=== PATIENT | female | born 1945 | race Caucasian/White ===

== ENCOUNTER 2020-08-08 13:05 | Outpatient (REF) | payer BC, SELFPAY ==
--- NOTE | 2020-08-08 13:36 | XR_ITS ---
EXAMINATION: XR HIP, LEFT CLINICAL INFORMATION: M25.552 - Pain in left hip COMPARISON: Pelvis and left hip 01/12/2020, 10/21/2017 TECHNIQUE: AP view pelvis is performed along with AP and frog-lateral projections left hip. FINDINGS: There are 3 nails through the left hip. Hardware is intact. There are interval increased osteoarthritic changes with marked left hip joint narrowing and increased subchondral sclerosis and enlarging lateral acetabular osteophyte. There are interval cystic changes superior femoral head adjacent to the superior articular flattening measuring around 1.5 cm in diameter. This may related to progressing subchondral geodes or avascular necrosis. There are degenerative changes again seen lumbosacral junction and osteoarthritis right hip. XR/XR hip LT w PEL1V IMPRESSION: 1. Progressive osteoarthritic changes left hip with interval 1.5 cm cystic change superior femoral head adjacent to prior area of articular flattening. This may be related to geodes or avascular necrosis. 2. Degenerative changes lumbosacral junction and right hip.
== END 2020-08-08 13:06 | disposition home or self-care (01) ==
LOC: HO.HOSX 13:05
PROVIDERS: Visit Provider Orthopaedic Surgery
DX: M16.52 Unilateral post-traumatic osteoarthritis, left hip (principal)
CPT/HCPCS: 73502

== ENCOUNTER → 2020-09-12 12:53 | Outpatient (BNVA) | payer BC, SELFPAY | PROVIDERS: PCP Nurse Practitioner Family; Visit Provider Orthopaedic Surgery | DX: Z01.812 Encounter for preprocedural laboratory examination (principal); Z01.810 Encounter for preprocedural cardiovascular examination ==

== ENCOUNTER → 2020-10-04 13:07 | Outpatient (BNVA) | payer MEDICARE, SELFPAY | PROVIDERS: Visit Provider Physician Assistant | DX: M16.52 Unilateral post-traumatic osteoarthritis, left hip (principal) | CPT/HCPCS: 99212 ==

== ENCOUNTER 2020-10-09 06:09 | Inpatient (IN) | payer MEDICARE, SELFPAY ==
[2020-10-02 11:43] VITALS: BP 148/80; PULSE 84; RESP 16; O2SAT 98; BMI 25.7
--- NOTE | 2020-10-02 11:57 | P.CONAN_ITS ---
Documented by User: Valery Underwood 10/06/20 07:05 HPI - Anesthesia Eval Consult details Narrative: 75yo F for Left Hip Total Replacement Eliquis for LLE DVT - chronic, nonocclusive per vascular clearance note. OK to interrupt eliquis for surgery. PCP cleared PMFSH Active Problems Active Problems: All Active Problems (Updated 09/29/20 @ 12:41 by Lucy Pennington) Post-traumatic osteoarthritis of left hip (Acute) Past Medical History Medical History Tita's thyroiditis High cholesterol History of DVT of lower extremity Hypertension Family History Family history of problems with anesthesia: No Surgical History Surgical History History of hip surgery Hx of section Hx of tonsillectomy History of Problems with Anesthesia: No Social History Social History Household Members Other:: Lives with daughter and grandaughter Are you a primary child daycare worker to a significant other at home: No Do you presently have visiting nurse or other home services: No Smoking Status: Never smoker Use of substances other than those prescribed or required for medical reasons: No Have you been hit, kicked, punched, or otherwise hurt by someone within the past year? If so, by whom?: No Advance Directives: No Advance Directives Information Provided: No Advance Directives on File: No Recently lost weight without trying: No Current occupational status: retired Current occupation: Right Handed Narrative Narrative: No recent illness. Covid vaccination complete. Activity limited to pain, no CP/SOB within limits. Meds Allergies Allergy/AdvReac Type Severity Reaction Status Date / Time No Known Allergies Allergy Verified 10/04/20 13:20 [No Known Allergies*] Home Medications Medication Instructions Recorded Confirmed Last Taken Type apixaban 5 mg tablet 5 mg PO BID 08/08/20 09/29/20 10/06/20 History atorvastatin 10 mg tablet 10 mg PO DAILY 08/08/20 09/29/20 Unknown History levothyroxine 50 mcg capsule 50 mcg PO .QOD cap 08/08/20 09/29/20 Unknown History levothyroxine 75 mcg capsule 75 mcg PO .QOD cap 08/08/20 09/29/20 10/09/20 History lisinopril 10 mg tablet 10 mg PO DAILY 08/08/20 09/29/20 Unknown History cholecalciferol (vitamin D3) 25 mcg PO DAILY 10/02/20 10/02/20 Unknown History [Vitamin D3] Exam Exam Date and Time: October 02, 2020 1157 Pertinent Lab Results Pertinent Lab Results: 10/02/20 MRSA Nasal Screen Routine 10/02/20 12:50 Type and Screen Routine Basic Metabolic Panel Routine Complete Blood Count no Diff Routine Hemoglobin A1c Routine Laboratory Last Values WBC 5.2 X10*3/uL (4.8-10.8) 10/02/20 12:50 RBC 4.62 X10*6/uL (4.20-5.50) 10/02/20 12:50 Hgb 13.5 g/dl (12.0-16.0) 10/02/20 12:50 Hct 41.9 % (37-47) 10/02/20 12:50 MCV 90.7 fL (80-98) 10/02/20 12:50 MCH 29.2 pg (27.0-33.0) 10/02/20 12:50 MCHC 32.2 g/dl (31.0-35.0) 10/02/20 12:50 RDW 12.8 % (11.0-16.0) 10/02/20 12:50 Plt Count 291 X10*3/uL (160-400) 10/02/20 12:50 MPV 9.0 fL (9.4-12.3) L 10/02/20 12:50 Absolute Nucleated RBC 0.000 X10*3/uL (0.0-0.012) 10/02/20 12:50 Nucleated RBC % (auto) 0.0 /100WBC (0.0-0.2) 10/02/20 12:50 Sodium 142 mmol/L (135-145) 10/02/20 12:50 Potassium 4.2 mmol/L (3.3-5.1) 10/02/20 12:50 Chloride 107 mmol/L (96-108) 10/02/20 12:50 Carbon Dioxide 29 mmol/L (22-29) 10/02/20 12:50 Anion Gap 10 (12-20) L 10/02/20 12:50 BUN 18 mg/dL (9-16) H 10/02/20 12:50 Creatinine 0.87 mg/dL (0.5-1.4) 10/02/20 12:50 Estim Creat Clear Calc 55.9 10/02/20 12:50 Estimated GFR > 60 10/02/20 12:50 Random Glucose 102 mg/dL (60-115) 10/02/20 12:50 Estimat Average Glucose 100 mg/dL 10/02/20 12:50 Hemoglobin A1c % 5.1 % 10/02/20 12:50 Calcium 8.9 mg/dL (8.4-10.2) 10/02/20 12:50 Nasal Screen MRSA (PCR) NEGATIVE (Negative) 10/02/20 Unknown Nasal S. aureus Screen NEGATIVE (Negative) 10/02/20 Unknown Nasal MRSA/S.aureus Interp SEE NOTE 10/02/20 Unknown Blood Type A Positive 10/02/20 12:50 Antibody Screen NEGATIVE 10/02/20 12:50 Narrative Narrative: EKG 08/2020 NSR per pcp clearance note Airway Mallampati Class: II TM Dist: >3cm Neck ROM: Full Loose/Missing/Broken Teeth: Yes (Capped #7&10) Heart: RRR Lungs: CTAB Assessment and Plan Assessment Anesthesia Assessment: Anesthesia Plan Discussed and PAT Visit Documented by User: Kd Kraft MD 10/09/20 08:02 [facility] Past Medical History Medical History Tita's thyroiditis High cholesterol History of DVT of lower extremity Hypertension Surgical History Surgical History History of hip surgery Hx of section Hx of tonsillectomy Social History Social History Household Members Other:: Lives with daughter and grandaughter Are you a primary child daycare worker to a significant other at home: No Do you presently have visiting nurse or other home services: No Smoking Status: Never smoker Use of substances other than those prescribed or required for medical reasons: No Have you been hit, kicked, punched, or otherwise hurt by someone within the past year? If so, by whom?: No Advance Directives: No Advance Directives Information Provided: No Advance Directives on File: No Recently lost weight without trying: No Current occupational status: retired Current occupation: Right Handed Meds Allergies Allergy/AdvReac Type Severity Reaction Status Date / Time No Known Allergies Allergy Verified 10/04/20 13:20 [No Known Allergies*] Home Medications Medication Instructions Recorded Confirmed Last Taken Type apixaban 5 mg tablet 5 mg PO BID 08/08/20 09/29/20 10/06/20 History atorvastatin 10 mg tablet 10 mg PO DAILY 08/08/20 09/29/20 Unknown History levothyroxine 50 mcg capsule 50 mcg PO .QOD cap 08/08/20 09/29/20 Unknown History levothyroxine 75 mcg capsule 75 mcg PO .QOD cap 08/08/20 09/29/20 10/09/20 History lisinopril 10 mg tablet 10 mg PO DAILY 08/08/20 09/29/20 Unknown History cholecalciferol (vitamin D3) 25 mcg PO DAILY 10/02/20 10/02/20 Unknown History [Vitamin D3] Assessment and Plan Assessment Anesthesia Assessment: Anesthesia Plan Discussed and Chart Reviewed (Apixaban last dose 72 hours ago) Final Anesthetic Review NPO: Yes ASA Class: II Final Preanesthetic Review: No Changes in Pt Med Stat, Meds/Allgs Chart Reviewed, Consent Obtained/Reviewed and Anes Risks/Benef Reviewed Patient Risk: Intermediate Procedure Risk: Intermediate Anesthetic Plan Anesthetic Plan: MAC:, Spinal and Regional Block Disposition: Standard PACU
[2020-10-02 13:19] LABS: Hematocrit 41.9 % (37-47); Hemoglobin 13.5 g/dl (12.0-16.0); Mean Corpuscular HGB Conc 32.2 g/dl (31.0-35.0); Mean Corpuscular Hemoglobin 29.2 pg (27.0-33.0); Mean Corpuscular Volume 90.7 fL (80-98); Platelet Count 291 X10*3/uL (160-400); Red Blood Count 4.62 X10*6/uL (4.20-5.50); Red Cell Distribution Width 12.8 % (11.0-16.0); White Blood Count 5.2 X10*3/uL (4.8-10.8)
[2020-10-02 13:47] LABS: Anion Gap 10 (12-20); Blood Urea Nitrogen 18 mg/dL (9-16); Calcium 8.9 mg/dL (8.4-10.2); Carbon Dioxide 29 mmol/L (22-29); Chloride 107 mmol/L (96-108); Creatinine Clr Calc Pharmacy 55.9; Estimated Glomerular Filt Rate > 60; Glucose Random 102 mg/dL (60-115); Potassium 4.2 mmol/L (3.3-5.1); Sodium 142 mmol/L (135-145)
[2020-10-02 13:50] LABS: MRSA Nasal PCR NEGATIVE (Negative); SA Nasal PCR NEGATIVE (Negative)
[2020-10-02 14:00] LABS: Estimated Average Glucose 100 mg/dL; Hemoglobin A1c % 5.1 %
[2020-10-09] VITALS (18 sets, daily range): BP systolic 100–142; BP diastolic 42–63; PULSE 60–95; RESP 9–20; TEMP 36.2–36.9; O2SAT 94–99
--- NOTE | ~2020-10-09 | XR_ITS ---
EXAMINATION: XR HIP, LEFT CLINICAL INFORMATION: Postop COMPARISON: Previous x-ray July 2020 TECHNIQUE: Two views of the left hip. FINDINGS: There is a new left hip replacement in satisfactory position. No fracture or dislocation is seen. There is arthritis of the right hip joint. There are postoperative changes to the soft tissues. XR/XR hip LT w PEL1V IMPRESSION: Satisfactory appearance of left hip replacement.
[2020-10-09 06:54] LABS: COVID-19 Test Negative (Negative)
[2020-10-09] MEDS: Gabapentin 600 MG TABLET PO (06:59)
[2020-10-09] MEDS: Lactated Ringers 1,000 ML 100 ML IVCONT ×2 (07:14→13:57)
--- NOTE | 2020-10-09 07:23 | MHC.SHP ---
Pre-Procedural Eval Section A The patient is an INPATIENT: No Changes since office visit: No Cold of Flu in the past 2 weeks, No New Medical Problems, No Changes in Medication and No Patient answered all questions The History & Physical has been completed within 30 days and I have reviewed it.: Yes Section B Chief Complaint: left total hip arthroplasty with hardware removal Allergies: Allergies Allergy/AdvReac Type Severity Reaction Status Date / Time No Known Allergies Allergy Verified 10/04/20 13:20 [No Known Allergies*] Plan I have reviewed the history and physical and performed a pertinent physical examination on my patient. No changes have occurred unless specified.
--- NOTE | 2020-10-09 10:16 | W.PM.OPN ---
Operative Note Operative Note Date of Service: 10/09/20 Narrative: OPERATIVE PROCEDURE SURGEON: Dr De La Cruz(Janene) Instrum FURNITURE TECHNICIAN: Jacqui Cox PAC PREOP DIAGNOSIS: Osteoarthritis left hip with percutaneous screws POSTOP DIAGNOSIS: Same OPERATIVE PROCEDURE: Removal of screws; Left Total hip arthroplasty-Gerald Accolade to size for by 132 degree femur, 32 mm standard Biolox head, 48 mm trident acetabulum, 32 mm x 0 degree acetabular liner CLINICAL NOTE: This very pleasant individual comes in today in regards to their left hip. That evidence of osteoarthritis. This failed operative management. Therefore after explaining the risks benefits and alternatives and answering all the questions it was mutually agreed upon to carry following procedure. OPERATIVE DETAILS Under a spinal anesthetic the patient was placed in the right decubitus position. The leg was then prepped and draped in standard fashion. Surgical time-out was then performed. Patient is identified. Procedure confirmed. Site confirmed. Medical and allergy history was reviewed. Preoperative antibiotics were given. Standard DVT prophylaxis in place. Trans E make acid was given as well. All was discussed and agreed upon. Standard anterolateral approach to the hip was carried out. Hemostasis was achieved along the way at all points with electrocautery. This brought us down to the level of the fascia tye. This was divided along the length of the incision. At this point the vastus lateralis was explored and the 3 screws are identified and were all removed without incident. We then turned our attention back to the hip itself. The abductor musculature was identified. The anterior 2/3 were divided through tendon directly onto the greater trochanter. Muscle was then elevated off the capsule down to the level of the acetabulum. At this point a capsulectomy was then performed. The hip was then dislocated. Obvious evidence of osteoarthritis. The head and neck was then resected according to preoperative templating. We then turned our attention to the acetabulum. The remainder of the capsule and acetabular look labrum was removed. The soft tissue within the fovea was excised as well. . The be curette was used to remove any rib remaining cartilage. Starting with the 47 mm Reamer the acetabulum was sequentially reamed up to a size 48 mm. The trial acetabulum was placed at this point. It demonstrated appropriate fit fill and alignment. Therefore the 48 mm trident acetabulum was selected and brought up the table. The acetabulum was then thoroughly irrigated. The permanent component was brought up on the table. It was then Press-Fit into place with excellent fit and alignment. A trial liner for the 32 mm head was selected. It was placed and we turned our attention to the femur. Box osteotome was used to lateralize the canal. T Reamer was then used to sound the canal. The canal was then sequentially broached from a 0 to a size 4. It had excellent medial lateral fit and rotational stability. A trial reduction was then performed using the 132 degree collar and the 32 mm standard head. The hip was reduced. It was placed through range of motion. It demonstrated excellent leg lengths. Full range of motion. Stable in all positions. And therefore the Accolade 2 size4, femoral component along with the 32 mm standard acetabular liner, and the 32 mm standard head were selected and brought up to the table. The hip was redislocated. The trial components were then all removed. The acetabular was thoroughly irrigated. The permanent liner was tapped into place. Turning our attention back to the femur, it was thoroughly irrigated. The permanent component was brought up to the table. It was then tapped into place with the same fit and fill as the broach had been. The head was brought up. The Garcia taper was cleaned and dried. The head tapped into place. Final reduction was then performed which again demonstrated excellent leg length is. Full range of motion. And excellent stability. Therefore proceeded closure. The wound was thoroughly irrigated. The abductor musculature was repaired with 2. Dexon. The fascia tye was closed with 2. Quill suture. The skin was approximated using interrupted 2-0 Dexon. The skin was then closed with kati. Sterile dressing was then applied. The patient then had the anesthesia reversed. They were transferred supine to the room bed then taken to recovery room in good condition. Intraoperatively a 2nd unit trans of mac acid was given. There was approximately 100 cc of blood loss. No intraop transfusions or complications.
--- NOTE | 2020-10-09 12:59 | PC.NURSE ---
Went to check in on patient at 1248 to discuss pain medication and found her unresponsive. No response to sternal rub. Pt was without breath, pale in color w/ bluish lips, no pulse found, called mia blue rapid response. MD and team responded within seconds. compressions initiated. with 3rd compression pt opened eyes and started to move. Code team found BP to hypotensive, in sinus rhythm. Pt able to respond at this point and state who she was and why she was here. Pt reported that she was sitting up to get ready to eat and started to feel lightheaded. Pt remains pale and hypotensive. Will cont to monitor VS Q15 for the next hr. Bolus of LR running per code team. Prior to incident pt had been assessed at 1230 by this RN and at that time had only reported increasing pain as block to L leg was wearing off.
[2020-10-09 13:01] LABS: Glucose, Whole Blood 78 mg/dL (60-115)
--- NOTE | 2020-10-09 13:12 | PM.IMCN ---
History of Present Illness Data of Consult Service Date: 10/09/20 Requesting physician: Jono Jorge Primary Care Provider: Tan Talbot NP HPI Reason for consult: Syncope 75F presented for elective left total hip arthroplasty with hardware removal. Surgery was uneventful. Once patient came back to the floor, she began to eat and then felt lightheaded. Patient was then witnessed to have loss of consciousness. Rapid response was called. Patient was noted to be significantly hypertensive with systolic blood pressure in 70s. She was placed in Trendelenburg and given 1 L of lactated Ringer. Patient then will common was oriented to person place time. Her blood pressure improved to 111 systolic. She denied any chest pain, shortness of breath. Review of Systems Review of Systems: Constitutional: Denies fever, denies Chills Eyes: denies blurry vision ENT: denies sore throat CVS: denies chest pain Respiratory: Denies dyspnea GI: no abdominal pain : denies dysuria MSK: denies neck pain Skin: denies rash Neuro: denies specific motor weakness Psych: denies suicidal ideation Endocrine: denies heat/cold intoleratnce Hematologic: denies easy bleeding Allergy: denies hives [facility] Medical History Tita's thyroiditis High cholesterol History of DVT of lower extremity Hypertension Hypothyroid Family history: reviewed and not pertinent Surgical History History of hip surgery Hx of section Hx of tonsillectomy Social History Household Members Other:: Lives with daughter and grandaughter Are you a primary landcare officer to a significant other at home: No Do you presently have visiting nurse or other home services: No Smoking Status: Never smoker Use of substances other than those prescribed or required for medical reasons: No Have you been hit, kicked, punched, or otherwise hurt by someone within the past year? If so, by whom?: No Advance Directives: No Advance Directives Information Provided: No Advance Directives on File: No Recently lost weight without trying: No Current occupational status: retired Current occupation: Right Handed Meds Allergies Allergy/AdvReac Type Severity Reaction Status Date / Time No Known Allergies Allergy Verified 10/04/20 13:20 [No Known Allergies*] Active Medications: Current Medications Generic Name Dose Route Start Last Admin Trade Name Freq PRN Reason Stop Dose Admin Acetaminophen 650 mg 10/09/20 13:00 Acetaminophen 325 Mg Tablet PO Q6H [facility] Lactated Ringer's 1,000 mls @ 100 mls/hr 10/09/20 06:15 10/09/20 07:14 Lr IVCONT 100 mls/hr .Q10H [facility] Administration Cefazolin Sodium/Dextrose 2 gm in 50 mls @ 100 mls/hr 10/09/20 13:50 Ancef IV 10/09/20 14:19 POSTOP ONE Lactated Ringer's 500 mls @ 999 mls/hr 10/09/20 13:15 Lr IV 10/09/20 13:45 .Q31M [facility] Ketorolac Tromethamine 15 mg 10/09/20 13:00 Ketorolac Tromethamine 15 Mg/Ml Vial IVPUSH Q6H [facility] Morphine Sulfate 2 mg 10/09/20 11:32 Morphine Sulfate 2 Mg/Ml Cartridge IVPUSH Q2H PRN Pain, Severe (Pain Scale 7-10) Naloxone HCl 0.2 mg 10/09/20 11:32 Naloxone Hcl 0.4 Mg/Ml Vial IVPUSH Q2M PRN Excessive sedation or RR < 8 Ondansetron HCl 4 mg 10/09/20 11:32 Ondansetron Hcl 4 Mg/2 Ml Vial IVPUSH Q8H PRN Nausea and Vomiting Oxycodone HCl 10 mg 10/09/20 13:00 Oxycodone Hcl Immed Release 5 Mg Tablet PO Q6H [facility] Sodium Chloride 3 ml 10/09/20 16:00 0.9 % Sodium Chloride Flush 3 [facility] Medications Medication Instructions Recorded Confirmed Last Taken Type apixaban 5 mg tablet 5 mg PO BID 08/08/20 09/29/20 10/06/20 History atorvastatin 10 mg tablet 10 mg PO DAILY 08/08/20 09/29/20 Unknown History levothyroxine 50 mcg capsule 50 mcg PO .QOD cap 08/08/20 09/29/20 Unknown History levothyroxine 75 mcg capsule 75 mcg PO .QOD cap 08/08/20 09/29/20 10/09/20 History lisinopril 10 mg tablet 10 mg PO DAILY 08/08/20 09/29/20 Unknown History cholecalciferol (vitamin D3) 25 mcg PO DAILY 10/02/20 10/02/20 Unknown History [Vitamin D3] Physical Exam Vital Signs and Narrative: Vital Signs: Last Vital Signs Temp 97.3 F 10/09/20 11:35 Pulse 65 10/09/20 11:35 Resp 16 10/09/20 11:35 BP 132/58 L 10/09/20 11:35 Pulse Ox 99 10/09/20 11:35 Body Mass Index 25.7 General: no acute distress HEENT: atraumatic Neck: normal to visual inspection CVS: S1, S2, RRR Resp: CTA bilateral Chest: non tender GI: soft, non tender, non distended : no CVA tenderness Skin: no rashes Extremities: no edema Neuro: Lethargic Oriented X3, grossly intact Psych: cooperative Results Labs CBC and Chem 7: 10/02/20 12:50 10/02/20 12:50 Labs: Laboratory Results - last 24 hr 10/09/20 10/09/20 06:25 12:51 POC Glucose 78 COVID-19 (JEREMIAH) Negative COVID-19 Clin Com See Note Assessment and Plan (1) Hypothyroid: Status: Acute (2) Syncope: Status: Acute 75-year-old female presented for elective left total hip arthroplasty with hardware removal complicated by postoperative syncope due to hypotension. Hypotension and syncope Resolved with IV fluids Monitor Hold antihypertensives Hypothyroid Synthroid History of DVT Restart Eliquis when okay from surgical standpoint Hyperlipidemia Statin
[2020-10-09] MEDS: Lactated Ringers 500 ML 999 ML IV (13:13)
[2020-10-09] MEDS: oxyCODONE HCl Immed Release 5 MG TABLET 10 MG PO ×2 (13:18→20:41)
[2020-10-09] MEDS: Acetaminophen 325 MG TABLET 650 MG PO ×2 (13:18→20:41)
[2020-10-09] MEDS: Ketorolac Tromethamine 15 MG/ML VIAL IVPUSH ×2 (13:22→20:41)
[2020-10-09] MEDS: ceFAZolin Sodium/Dextrose,Iso 2 GM/50 ML PIGGYBACK IV (13:57)
[2020-10-09] MEDS: 0.9 % Sodium Chloride Flush 3 ML SYRINGE IVFLUSH (20:41)
[2020-10-10] VITALS (7 sets, daily range): BP systolic 104–138; BP diastolic 46–54; PULSE 89–94; RESP 16–20; TEMP 36.2–37.2; O2SAT 92–98
[2020-10-10] MEDS: Acetaminophen 325 MG TABLET 650 MG PO ×4 (01:17→17:59)
[2020-10-10] MEDS: Lactated Ringers 1,000 ML 100 ML IVCONT ×3 (01:17→22:44)
[2020-10-10] MEDS: oxyCODONE HCl Immed Release 5 MG TABLET 10 MG PO ×4 (01:17→18:00)
[2020-10-10] MEDS: Ketorolac Tromethamine 15 MG/ML VIAL IVPUSH ×4 (01:18→18:00)
[2020-10-10] MEDS: Levothyroxine Sodium 50 MCG TABLET PO (06:07)
[2020-10-10 06:16] LABS: MANUAL DIFF FLAG NO
[2020-10-10 06:49] LABS: Basophils Percent Auto 0.3 % (0-2); Eosinophils Absolute Auto 0.1 X10*3/uL (0.0-0.4); Eosinophils Percent Auto 1.3 % (0-4); Hematocrit 31.4 % (37-47); Imm Gran Abs Auto 0.03 X10*3/uL (0.00-0.03); Imm Gran Pct Auto 0.4 % (0.0-0.4); Lymphocytes Absolute Auto 1.4 X10*3/uL (1.2-4.9); Lymphocytes Percent Auto 19.8 % (20-40); Mean Corpuscular HGB Conc 31.8 g/dl (31.0-35.0); Mean Corpuscular Hemoglobin 29.2 pg (27.0-33.0); Mean Corpuscular Volume 91.5 fL (80-98); Mean Platelet Volume 9.5 fL (9.4-12.3); Monocytes Absolute Auto 1.1 X10*3/uL (0.1-1.2); Monocytes Percent Auto 16.2 % (2-11); Neutrophils Absolute Auto 4.4 X10*3/uL (2.0-8.3); Platelet Count 201 X10*3/uL (160-400); Red Blood Count 3.43 X10*6/uL (4.20-5.50); Red Cell Distribution Width 13.1 % (11.0-16.0)
[2020-10-10 07:17] LABS: Anion Gap 11 (12-20); Blood Urea Nitrogen 17 mg/dL (9-16); Carbon Dioxide 26 mmol/L (22-29); Chloride 107 mmol/L (96-108); Creatinine Clr Calc Pharmacy 58.6; Estimated Glomerular Filt Rate > 60; Glucose Fasting 134 mg/dL (60-99); Magnesium 1.8 mg/dL (1.6-2.6); Potassium 4.4 mmol/L (3.3-5.1); Sodium 140 mmol/L (135-145)
[2020-10-10 07:40] LABS: Calcium 7.7 mg/dL (8.4-10.2)
[2020-10-10] MEDS: Atorvastatin Calcium 10 MG TABLET PO (07:43)
--- NOTE | 2020-10-10 11:10 | MHC.CM.PN ---
IMM 10/10/20, EMR REVIEWED, PT ADMITTED W/LEFT TOTAL HIP ARTHROPLASTY, CM MET W/PT WHO IS ALERT AND ORIENTED, PT REPORTS SHE LIVES AT HOME W/DAUGHTER AND 12YO GRANDDAUGHTER, PT REPORTS SHE USES A CANE AT HOME AND ROLLATER WALKER WHEN NEEDED, PT HAS NO HOME SERVICES AND PRIOR TO ADMIT WAS INDEPENDENT W/ALL CARE, DAUGHTER PROVIDING ASSISTANCE W/HOUSEHOLD NEEDS. PT REPORTS SHE WOULD LIKE TO GO HOME W/SERVICES AND IS CURRENTLY DECLINING STR IF RECOMMENDED. PER PT CHOICE SHE PREFERS [facility], DISCHARGE PLAN: HOME W/[facility] FOR [facility]RECTION AND HOME PT, FAMILY VS BLS FOR TRANSPORT PCP: EDWINA GONZALES HCP: TIM BELLO [phone], COPY REQUESTED
--- NOTE | 2020-10-10 11:15 | MHC.CM.PN ---
REFERRAL SENT TO [facility] PER PT REQUEST.
--- NOTE | 2020-10-10 11:59 | PM.PNORT ---
Subjective Subjective Date of Service: 10/10/20 Interval history: POD 1 s/p LT DEDRA No overnight events, she did have some episodes of hypotsn which has now resolved Has not been out of bed pain is tolerable denies sob,cp, dizziness Physical Exam Vital Signs: Vital Signs: Last Vital Signs Temp 98.5 F 10/10/20 11:36 Pulse 91 10/10/20 11:36 Resp 16 10/10/20 11:36 BP 108/49 L 10/10/20 11:36 Pulse Ox 98 10/10/20 11:36 Body Mass Index 25.7 Const: General: cooperative, healthy appearing and no acute distress Resp: Effort & Inspection: normal respiratory effort and able to speak in complete sentences Cardio: Rate: regular rate Peripheral pulses: Peripheral pulses 2+ throughout GI: Palpation (GI): Soft to palpation Skin: General skin exam: no rashes or lesions noted Extrem: Other: Left hip incision c/d/i. No erythema, mild edema, sensation intact Progress Note: A&P Assessment and plan (1) History of total left hip replacement: Status: Acute Assessment and Plan: Continue pain mgmnt resume eliquis 48 hrs post op begin PT for LT DEDRA Dispo planning-Pending PT eval, pain mgmnt Fall Risk Details Current Medications: Current Medications Generic Name Dose Route Start Last Admin Trade Name Vargas PRN Reason Stop Dose Admin Acetaminophen 650 mg 10/09/20 13:00 10/10/20 07:42 Acetaminophen 325 Mg Tablet PO 650 mg Q6H [facility] Administration Atorvastatin Calcium 10 mg 10/10/20 09:00 10/10/20 07:43 Atorvastatin Calcium 10 Mg Tablet PO 10 mg DAILY [facility] Administration Lactated Ringer's 1,000 mls @ 100 mls/hr 10/09/20 06:15 10/10/20 11:49 Lr IVCONT Infused .Q10H [facility] Infusion Ketorolac Tromethamine 15 mg 10/09/20 13:00 10/10/20 07:42 Ketorolac Tromethamine 15 Mg/Ml Vial IVPUSH 15 mg Q6H [facility] Administration Levothyroxine Sodium 75 mcg 10/11/20 06:30 Levothyroxine Sodium 75 Mcg Tablet PO Q2D@0630 [facility] Levothyroxine Sodium 50 mcg 10/10/20 06:30 10/10/20 06:07 Levothyroxine Sodium 50 Mcg Tablet PO 50 mcg Q2D@0630 [facility] Administration Morphine Sulfate 2 mg 10/09/20 11:32 Morphine Sulfate 2 Mg/Ml Cartridge IVPUSH Q2H PRN Pain, Severe (Pain Scale 7-10) Naloxone HCl 0.2 mg 10/09/20 11:32 Naloxone Hcl 0.4 Mg/Ml Vial IVPUSH Q2M PRN Excessive sedation or RR < 8 Ondansetron HCl 4 mg 10/09/20 11:32 Ondansetron Hcl 4 Mg/2 Ml Vial IVPUSH Q8H PRN Nausea and Vomiting Oxycodone HCl 10 mg 10/09/20 13:00 10/10/20 07:41 Oxycodone Hcl Immed Release 5 Mg Tablet PO 10 mg Q6H [facility] Administration Sodium Chloride 3 ml 10/09/20 16:00 10/10/20 07:44 0.9 % Sodium Chloride Flush 3 Ml Syringe IVFLUSH Not Given QSHIFT JULIAN Time Spent With Patient Time: Total time spent is greater than 50% in coordination of care (as documented) at patient's floor/unit and/or counseling patient: Time with patient: less than 15 minutes
--- NOTE | 2020-10-10 13:49 | HO.POSTANES ---
Post Anesthesia Evaluation Post Anesthesia Evaluation Vital Signs: Vital Signs Temp Pulse Resp BP Pulse Ox 10/10/20 11:36 98.5 F 91 16 108/49 L 98 10/10/20 09:38 138/54 L 10/10/20 07:18 98.7 F 89 16 104/46 L 98 10/10/20 04:00 97.2 F 92 20 128/52 L 95 Anesthesia: Spinal Mental Status: Awake Nausea/Vomiting: None Hydration: Adequate Anesthesia-Related Issues: No Anes. Related Issues
--- NOTE | 2020-10-10 14:07 | HO.PM.IMPN ---
Subjective Subjective Date of Service: 10/10/20 Interval History: feeling better Cardiovascular Cardiovascular: Reports no additional cardiovascular complaints Gastrointestinal Gastrointestinal: Reports no additional gastrointestinal complaints Physical Exam Vital Signs: Vital Signs: Last Vital Signs Temp 98.5 F 10/10/20 11:36 Pulse 91 10/10/20 11:36 Resp 16 10/10/20 11:36 BP 108/49 L 10/10/20 11:36 Pulse Ox 98 10/10/20 11:36 Body Mass Index 25.7 General: AO X 3, no acute distress Resp: CTA bilateral CVS: S1,S2,RRR GI: soft, non tender, non distended Neuro: motor grossly intact Psych: appropriate affect Objective Data Current Medications Generic Name Dose Route Start Last Admin Trade Name Freq PRN Reason Stop Dose Admin Acetaminophen 650 mg 10/09/20 13:00 10/10/20 12:59 Acetaminophen 325 Mg Tablet PO 650 mg Q6H JULIAN Administration Atorvastatin Calcium 10 mg 10/10/20 09:00 10/10/20 07:43 Atorvastatin Calcium 10 Mg Tablet PO 10 mg DAILY JULIAN Administration Lactated Ringer's 1,000 mls @ 100 mls/hr 10/09/20 06:15 10/10/20 13:00 Lr IVCONT 100 mls/hr .Q10H JULIAN Administration Ketorolac Tromethamine 15 mg 10/09/20 13:00 10/10/20 13:00 Ketorolac Tromethamine 15 Mg/Ml Vial IVPUSH 15 mg Q6H JULIAN Administration Levothyroxine Sodium 75 mcg 10/11/20 06:30 Levothyroxine Sodium 75 Mcg Tablet PO Q2D@0630 JULIAN Levothyroxine Sodium 50 mcg 10/10/20 06:30 10/10/20 06:07 Levothyroxine Sodium 50 Mcg Tablet PO 50 mcg Q2D@0630 JULIAN Administration Morphine Sulfate 2 mg 10/09/20 11:32 Morphine Sulfate 2 Mg/Ml Cartridge IVPUSH Q2H PRN Pain, Severe (Pain Scale 7-10) Naloxone HCl 0.2 mg 10/09/20 11:32 Naloxone Hcl 0.4 Mg/Ml Vial IVPUSH Q2M PRN Excessive sedation or RR < 8 Ondansetron HCl 4 mg 10/09/20 11:32 Ondansetron Hcl 4 Mg/2 Ml Vial IVPUSH Q8H PRN Nausea and Vomiting Oxycodone HCl 10 mg 10/09/20 13:00 10/10/20 13:00 Oxycodone Hcl Immed Release 5 Mg Tablet PO 10 mg Q6H JULIAN Administration Sodium Chloride 3 ml 10/09/20 16:00 10/10/20 07:44 0.9 % Sodium Chloride Flush 3 Ml Syringe IVFLUSH Not Given QSHIFT JULIAN Labs CBC & Chem 7: 10/10/20 06:03 10/10/20 06:03 Assessment and Plan (1) Syncope: Status: Acute Assessment and Plan: 75-year-old female presented for elective left total hip arthroplasty with hardware removal complicated by postoperative syncope due to hypotension. POD 1 Hypotension and syncope 10/09/20 Resolved with IV fluids Holding antihypertensives Hypothyroid Synthroid History of DVT Restart Eliquis when okay from surgical standpoint Hyperlipidemia Statin
[2020-10-11] MEDS: Acetaminophen 325 MG TABLET 650 MG PO ×3 (00:35→12:08)
[2020-10-11] MEDS: 0.9 % Sodium Chloride Flush 3 ML SYRINGE IVFLUSH (00:36)
[2020-10-11] MEDS: Ketorolac Tromethamine 15 MG/ML VIAL IVPUSH ×2 (00:36→06:35)
[2020-10-11] MEDS: oxyCODONE HCl Immed Release 5 MG TABLET 10 MG PO ×3 (00:36→12:09)
[2020-10-11 03:34] VITALS: BP 114/52; PULSE 93; RESP 18; TEMP 37.1; O2SAT 93
[2020-10-11 06:24] LABS: MANUAL DIFF FLAG NO
[2020-10-11] MEDS: Levothyroxine Sodium 75 MCG TABLET PO (06:34)
[2020-10-11 06:54] LABS: Basophils Percent Auto 0.4 % (0-2); Eosinophils Absolute Auto 0.3 X10*3/uL (0.0-0.4); Eosinophils Percent Auto 2.9 % (0-4); Hematocrit 27.3 % (37-47); Hemoglobin 8.8 g/dl (12.0-16.0); Imm Gran Abs Auto 0.05 X10*3/uL (0.00-0.03); Imm Gran Pct Auto 0.5 % (0.0-0.4); Lymphocytes Absolute Auto 1.8 X10*3/uL (1.2-4.9); Lymphocytes Percent Auto 18.4 % (20-40); Mean Corpuscular HGB Conc 32.2 g/dl (31.0-35.0); Mean Corpuscular Hemoglobin 29.6 pg (27.0-33.0); Mean Corpuscular Volume 91.9 fL (80-98); Mean Platelet Volume 9.7 fL (9.4-12.3); Monocytes Absolute Auto 1.3 X10*3/uL (0.1-1.2); Monocytes Percent Auto 12.6 % (2-11); Neutrophils Absolute Auto 6.4 X10*3/uL (2.0-8.3); Neutrophils Percent Auto 65.2 % (45-73); Platelet Count 170 X10*3/uL (160-400); Red Blood Count 2.97 X10*6/uL (4.20-5.50); Red Cell Distribution Width 13.1 % (11.0-16.0); White Blood Count 9.9 X10*3/uL (4.8-10.8)
[2020-10-11 07:04] LABS: Anion Gap 10 (12-20); Blood Urea Nitrogen 15 mg/dL (9-16); Calcium 7.4 mg/dL (8.4-10.2); Carbon Dioxide 26 mmol/L (22-29); Chloride 106 mmol/L (96-108); Creatinine Clr Calc Pharmacy 60.8; Estimated Glomerular Filt Rate > 60; Glucose Fasting 111 mg/dL (60-99); Sodium 138 mmol/L (135-145)
[2020-10-11 07:31] VITALS: BP 108/46; PULSE 93; RESP 18; TEMP 36.7; O2SAT 94
--- NOTE | 2020-10-11 07:53 | P.DS_ITS ---
DS: Providers Provider Date of Service: 10/11/20 Date of admission: 10/09/20 06:09 Primary care physician: Tan Talbot NP Consults: 10/09/20 11:32 Consult to Hospitalist Routine Consulting Provider: Hospitalist Reason For Exam: medical issues DS: Diagnosis Discharge Diagnosis (1) History of total left hip replacement: Status: Acute Problem details: Ms. Justin is a 75 yo female who presents to the office for ongoing left hip pain. She was found to have OA of the left hip and failed ll conservative treatment. She continued to have difficulty with ambulation and daily activities. Therefore, she consented to move forward with a left total hip arthroplasty. DS: Medications Discharge Medications Home Medications: Home Medications Medication Instructions Recorded Confirmed apixaban 5 mg tablet 5 mg PO BID 08/08/20 09/29/20 atorvastatin 10 mg tablet 10 mg PO DAILY 08/08/20 09/29/20 levothyroxine 50 mcg capsule 50 mcg PO .QOD cap 08/08/20 09/29/20 levothyroxine 75 mcg capsule 75 mcg PO .QOD cap 08/08/20 09/29/20 lisinopril 10 mg tablet 10 mg PO DAILY 08/08/20 09/29/20 cholecalciferol (vitamin D3) 25 mcg PO DAILY 10/02/20 10/02/20 [Vitamin D3] Previous Rx's Medication Instructions Recorded oxycodone 10 mg PO Q4-6H PRN 7 Days #42 tab 10/11/20 DS: Summary Hospital Course Hospital Course: The patient underwent a successful left total hip arthroplasty, they were transferred to PACU and then to the floor to recover. During their stay, their vitals were stable, afebrile at 98.7. Labs were unremarkable, H/H 8.8 and 27.3. POD 1 they received Physical Therapy services twice a day. POD2 she continued her Eliquis 5mg BID for DVT ppx. Prior to discharge, their dressing was changed, incision clean dry and intact, new Aquacel dressing applied and the plan was to be discharged home with VNA services. Time Spent with Patient Time attestation: Total time spent providing and/or coordinating discharge services: Discharge coordination time: Less than 30 minutes Physical Exam Vital Signs: Vital Signs: Last Vital Signs Temp 98.0 F 10/11/20 07:31 Pulse 93 10/11/20 07:31 Resp 18 10/11/20 07:31 BP 108/46 L 10/11/20 07:31 Pulse Ox 94 10/11/20 07:31 Body Mass Index 25.7 Const: General: cooperative, healthy appearing and no acute distress Resp: Effort & Inspection: normal respiratory effort and able to speak in complete sentences Cardio: Rate: regular rate Peripheral pulses: Peripheral pulses 2+ throughout GI: Palpation (GI): Soft to palpation Skin: Lesions: no lesions Rashes: no rashes Extrem: Other: left hip no ecchymosis, redness or drainage. Bela intact. New aquacel dressing applied. Sensation intact. Pedal pulse intact. DS: Data Data Completed and Pending Completed studies during hospitalization [Text1]: Pending at discharge 10/09/20 08:55 Surgical [PTH] Routine Labs on day of discharge: Laboratory Results - last 24 hr 10/11/20 10/11/20 06:04 06:04 WBC 9.9 RBC 2.97 L Hgb 8.8 L Hct 27.3 L MCV 91.9 MCH 29.6 MCHC 32.2 RDW 13.1 Plt Count 170 MPV 9.7 Immature Gran % (Auto) 0.5 H Neut % (Auto) 65.2 Lymph % (Auto) 18.4 L Ocean % (Auto) 12.6 H Eos % (Auto) 2.9 Baso % (Auto) 0.4 Lymph # (Auto) 1.8 Ocean # (Auto) 1.3 H Eos # (Auto) 0.3 Baso # (Auto) 0.0 Abs Immat Gran (auto) 0.05 H Absolute Neuts (auto) 6.4 Absolute Nucleated RBC 0.000 Nucleated RBC % (auto) 0.0 Sodium 138 Potassium 4.0 Chloride 106 Carbon Dioxide 26 Anion Gap 10 L BUN 15 Creatinine 0.80 Estim Creat Clear Calc 60.8 Estimated GFR > 60 Fasting Glucose 111 H Calcium 7.4 L Discharge Plan Discharge Patient Disposition: Home Health Service Referrals: Jacqui Cox PA-C [Physician [facility]] - (10/25/20 at 1:45pm) Discharge Medications: New oxycodone 10 mg tablet 10 mg PO Q4-6H PRN (Reason: pain) 7 Days Qty: 42 RF: 0 acetaminophen 325 mg Tablet 650 mg PO Q6H 30 Days Qty: 240 RF: 0 sennosides [Senna Lax] 8.6 mg tablet 17.2 mg PO BEDTIME PRN (Reason: constipation) 30 Days Qty: 60 RF: 0 Continued cholecalciferol (vitamin D3) [Vitamin D3] 25 mcg (1,000 unit) Capsule 25 mcg PO DAILY RF: 0 atorvastatin 10 mg tablet 10 mg PO DAILY RF: 0 lisinopril 10 mg tablet 10 mg PO DAILY RF: 0 levothyroxine 50 mcg capsule 50 mcg PO .QOD RF: 0 levothyroxine 75 mcg capsule 75 mcg PO .QOD RF: 0 apixaban 5 mg tablet 5 mg PO BID RF: 0 Discharge Orders: Discharge Order (Routine); Ordered 10/11/20 Ordered By: Jocy Romero Diet: advance to usual diet Activity on Discharge: Use cane or walker Stand Alone Forms: Patient Portal Discharge page Care Plan Goals: restore fxn of left hip Health Concerns: none Plan of Treatment: Physical Therapy for total hip arthroplasty: no precautions, gait training, ROM, strength Limit stair climbing No showering, no tub bath-keep dressing clean, dry and intact No driving x6 weeks Continue Aspirin 325mg tabs twice a day x 4 weeks Follow up with [facility] [place] Orth[facility]ics in 2 weeks
[2020-10-11] MEDS: Atorvastatin Calcium 10 MG TABLET PO (09:53)
[2020-10-11] MEDS: Apixaban 5 MG TABLET PO (09:53)
--- NOTE | 2020-10-11 11:33 | P.F2F_ITS ---
Service Date Service Date: 10/11/20 Reasons for Services Reason for physical therapy: home safety and mobility, therapeutic exercises, restore joint function, gait/transfer training and ADL training Reason for occupational therapy: home safety and mobility, therapeutic exercises, restore joint function, gait/transfer training and ADL training Overseeing Care: Jono Jorge Homebound: Leaving the home is medically contraindicated at this time without the asist of a device and/or another person due th the listed conditions above and below. Homebound supporting statement: Pt. is considered home bound due to recent surgery. Unable to drive, poor balance, poor gait mechanics. Certification: Based on the above findings, I certify that this patient is confined to the home and needs intermittent residential care, physical therapy and/or speech therapy, or continues to need occupational therapy. The patient is under my care, and I have initiated the establishment of the plan of care. The patient will be followed by a physician who will periodically review the plan of care.
[2020-10-11 11:40] VITALS: BP 127/65; PULSE 87; RESP 18; TEMP 36.8; O2SAT 97
--- NOTE | 2020-10-11 13:38 | HO.PM.IMPN ---
Subjective Subjective Date of Service: 10/11/20 Interval History: tired, but pain improved Cardiovascular Cardiovascular: Reports no additional cardiovascular complaints Gastrointestinal Gastrointestinal: Reports no additional gastrointestinal complaints Physical Exam Vital Signs: Vital Signs: Last Vital Signs Temp 98.3 F 10/11/20 11:40 Pulse 87 10/11/20 11:40 Resp 18 10/11/20 11:40 BP 127/65 10/11/20 11:40 Pulse Ox 97 10/11/20 11:40 Body Mass Index 25.7 Const General: cooperative, healthy appearing and no acute distress Resp Effort & Inspection: normal respiratory effort and able to speak in complete sentences Cardio Rate: regular rate Peripheral pulses: Peripheral pulses 2+ throughout GI Palpation (GI): Soft to palpation Skin Lesions: no lesions Rashes: no rashes Extrem Other: left hip no ecchymosis, redness or drainage. Bela intact. New aquacel dressing applied. Sensation intact. Pedal pulse intact. Objective Data Labs CBC & Chem 7: 10/11/20 06:04 10/11/20 06:04 Assessment and Plan (1) Syncope: Status: Acute Assessment and Plan: 75-year-old female presented for elective left total hip arthroplasty with hardware removal complicated by postoperative syncope due to hypotension. POD 2 Hypotension and syncope 10/09/20 Resolved with IV fluids Holding antihypertensives, ok to restart on discharg Hypothyroid Synthroid History of DVT Restart Eliquis Hyperlipidemia Statin
== END 2020-10-11 13:22 | disposition home health service (06) | DRG 470 ==
LOC: HO.SSSA 06:12 → HO.S3 10:00
PROVIDERS: Internal Medicine; Nurse Practitioner; Physician Assistant; Admitting Provider Orthopaedic Surgery; PCP Nurse Practitioner Family; Visit Provider Orthopaedic Surgery
PROC: 0SRB0JA Replacement of Left Hip Joint with Synthetic Substitute, Uncemented, Open Approach (ICD-10-PCS; CPT 27130; principal; 2020-10-09 07:30)
DX: M16.52 Unilateral post-traumatic osteoarthritis, left hip (principal); E78.5 Hyperlipidemia, unspecified; E03.9 Hypothyroidism, unspecified; I95.81 Postprocedural hypotension; Z86.718 Personal history of other venous thrombosis and embolism; Z20.822 Contact with and (suspected) exposure to COVID-19; Z79.01 Long term (current) use of anticoagulants; Z79.890 Hormone replacement therapy; Z79.899 Other long term (current) drug therapy
CPT/HCPCS: 36415; 73502; 80048; 82947; 83036; 83735; 85025; 85027; 86850; 86900; 87635; 87640; 87641; 88304; 88305; 88311; 94799; 97110; 97116; 97162; 97166; 97530; 97535; C1776; J0171; J0690; J1885; J2250

== ENCOUNTER → 2020-10-25 13:48 | Outpatient (BNVA) | payer MEDICARE, SELFPAY | PROVIDERS: Visit Provider Physician Assistant | DX: Z47.1 Aftercare following joint replacement surgery (principal); Z96.642 Presence of left artificial hip joint | CPT/HCPCS: 99212 ==

== ENCOUNTER → 2020-11-22 11:19 | Outpatient (BNVA) | payer MEDICARE, SELFPAY | PROVIDERS: Visit Provider Orthopaedic Surgery | DX: Z13.89 Encounter for screening for other disorder (principal) | CPT/HCPCS: 99212 ==

== ENCOUNTER → 2021-01-03 10:32 | Outpatient (BNVA) | payer MEDICARE, SELFPAY | PROVIDERS: Visit Provider Orthopaedic Surgery | DX: M25.552 Pain in left hip (principal) ==

== ENCOUNTER 2021-01-10 10:12 | Outpatient (REF) | payer MEDICARE, SELFPAY ==
--- NOTE | ~2021-01-10 | XR_ITS ---
EXAMINATION: XR HIP, LEFT CLINICAL INFORMATION: Left hip pain COMPARISON: Previous x-ray September 2020 TECHNIQUE: One view of the pelvis and 2 views of the left hip. FINDINGS: There is a left hip replacement in satisfactory position. No fracture, dislocation or x-ray evidence of loosening is seen. There is arthritis at the right hip joint with joint space narrowing, osteophyte formation and subchondral cyst formation. Bones of the pelvis are unremarkable. There are degenerative changes of the lower lumbar spine. Soft tissues are unremarkable. XR/XR hip LT w [id number] IMPRESSION: Satisfactory appearance of left hip replacement.
== END 2021-01-10 10:13 | disposition home or self-care (01) ==
LOC: HO.XRAY 10:12
PROVIDERS: PCP Nurse Practitioner Family; Visit Provider Orthopaedic Surgery
DX: T84.84XA Pain due to internal orthopedic prosthetic devices, implants and grafts, initial encounter (principal); Z96.642 Presence of left artificial hip joint
CPT/HCPCS: 73502; 99212

== ENCOUNTER → 2021-05-07 10:17 | Outpatient (BNVA) | payer MEDICARE, SELFPAY | PROVIDERS: PCP Nurse Practitioner Family; Visit Provider Orthopaedic Surgery | DX: Z47.1 Aftercare following joint replacement surgery (principal); Z96.642 Presence of left artificial hip joint | CPT/HCPCS: 99212 ==